=== PATIENT | male | born 1935 | race Caucasian/White ===

== ENCOUNTER → 2017-02-25 | Emergency (ER) | payer OTHER, BC ==
[2017-02-25 17:59] VITALS: BP 0/0; PULSE 0; BMI 26.6
--- NOTE | 2017-02-25 18:13 | PDOC ---
History of Present Illness - General History Source: Patient Exam Limitations: No Limitations - General Chief Complaint: Cardiac Arrest Stated Complaint: CARDIAC ARREST Time Seen by Provider: 02/25/17 17:47 - History of Present Illness Initial Comments: 02/25/17 18:34 81 yr old male with pmhx of cardiac arrhythmia, BPH and CABG who presents to the ED from [facility] in cardiac arrest. EMS was called at 16:39 for a resident that was found without vitals. EMS arrived on scene had the patient intubated, ACLS was started. Rhythm was regained and shortly after the patient was asystolic again. ACLS was continued at 17:17 in the ER. The case was called at 17:31. Case discussed with ME Triston Serrano and case was refused, case number is [id number]. PCP - Dr. Varun Chiu III, MD (Renata Smith) Past History - Past Medical History Allergies/Adverse Reactions: Allergies Allergy/AdvReac Type Severity Reaction Status Date / Time Penicillins Allergy Verified 02/25/17 17:48 Review of Systems - Review of Systems Able to Perform ROS?: No - Review of Systems Comments:: 02/25/17 18:34 Unable to obtain due to patients condition. (Renata Smith) *Physical Exam - Vital Signs Last Vital Signs Temp Pulse Resp BP Pulse Ox 96.0 F L 0 L 0/0 02/25/17 17:31 02/25/17 17:14 02/25/17 17:14 - Physical Exam Comments: 02/25/17 18:34 GENERAL: Unresponsive HEENT: Atraumatic. Pupils fixed and dilated CARDIOVASCULAR: No heartbeat. PULMONARY: Lung sounds with bagging. ABDOMEN: Flat. EXTREMITIES: No LE edema or errythema. Extremities are cold. (Renata Smith) *DC/Admit/Observation/Transfer - Attestations Scribe Attestion: 02/25/17 18:40 Documentation prepared by RENZO Watson, acting as medical consultant for Jo Ann Osei MD. (Renata Smith)
[2017-02-25 18:46] VITALS: TEMP 96
== END | disposition expired ==
LOC: JER 17:14
DX: I46.9 Cardiac arrest, cause unspecified (principal); Z95.1 Presence of aortocoronary bypass graft; N40.0 Benign prostatic hyperplasia without lower urinary tract symptoms; I49.8 Other specified cardiac arrhythmias
CPT/HCPCS: 92950; 99285-25